=== PATIENT | female | born 1955 | race Caucasian/White ===

== ENCOUNTER 2024-06-27 17:15 | Emergency (ER) | payer OTHER, MEDICARE ==
[2024-06-27 17:42] VITALS: BP 125/54; PULSE 86; RESP 20; TEMP 98.6; BMI 22.8
[2024-06-27] MEDS ORDERED: MECLIZINE HCL 25 MG TABLET (FP) ONE (18:08)
[2024-06-27] MEDS: SODIUM CHLORIDE 0.9% 1000 ML INFUS.BAG IV ONE (18:15)
[2024-06-27] MEDS: MECLIZINE HCL 25 MG TABLET (FP) PO ONE (18:15)
[2024-06-27 18:28] LABS: HEMATOCRIT 26.2 % (32.4-45.2); MCH 31.5 pg (25.7-33.7); MCHC 34.5 g/dl (32.0-36.0); MEAN CELL VOLUME 91.3 fl (80-96); MEAN PLT VOLUME 9.6 fl (7.5-11.1); PLATELET COUNT 156.2 10^3/uL (134-434); RBC 2.87 10^6/uL (3.60-5.2); RDW 13.8 % (11.6-15.6); WHITE BLOOD COUNT 7.9 10^3/uL (4.0-10.8)
[2024-06-27 18:36] LABS: INR 1.01 (0.83-1.09); PROTHROMBIN TIME (PATIENT) 11.5 SEC (9.7-13.0)
[2024-06-27 18:39] LABS: ACTIVATED PTT 27.2 SECONDS (25.2-36.5)
[2024-06-27 18:40] LABS: PLATELET ESTIMATE ADEQUATE
[2024-06-27 18:47] LABS: ALBUMIN 3.8 g/dl (3.4-5.0); BILIRUBIN,TOTAL 0.4 mg/dl (0.2-1); CALCIUM 8.9 mg/dl (8.5-10.1); CREATININE 0.7 mg/dl (0.6-1.3); MAGNESIUM 1.8 mg/dL (1.8-2.4); TOT PROT 5.6 g/dl (6.4-8.2)
[2024-06-27] MEDS ORDERED: LORATADINE 10 MG TABLET PO ONE (20:14)
== END 2024-06-27 21:34 | disposition home or self-care (01) ==
LOC: FER 17:15
DX: R06.02 Shortness of breath (principal); D64.9 Anemia, unspecified; R42 Dizziness and giddiness; R00.2 Palpitations; Z20.822 Contact with and (suspected) exposure to COVID-19
CPT/HCPCS: 0241U-QW; 36415; 71045-TC-FY; 80053; 81003; 81015; 83735; 84484; 85027; 85610; 85730; 93005; 99285-25